=== PATIENT | male | born 1985 | race African-American/Black ===

== ENCOUNTER 2016-10-03 15:07 | Emergency (ER) | payer BC ==
[~2016-10-03] VITALS: Ht 185.4 cm; Wt 116.9 kg
[2016-10-03 16:21] LABS: EOSINOPHIL (%) 2.9 % (0-5); EOSINOPHIL COUNT 0.2 K/uL (0-0.3); HEMATOCRIT 47.3 % (38.0-50.0); IMMATURE GRANULOCYTE (%) 0.4 % (0.0-0.7); INSTRUMENT ABS NEUTROPHIL CT 4.8 K/uL; LYMPHOCYTE COUNT 2.2 K/uL (1.0-2.8); MCH 25.9 PG (29.0-34.0); MCHC 32.3 G/DL (30.0-36.0); MEAN PLAT.VOLUME 9.5 uM^3 (9.0-12.4); MONOCYTE (%) 8.4 % (3-12); MONOCYTE COUNT 0.7 K/uL (0-0.8); NEUTROPHIL (%) 60.4 % (45-76); NEUTROPHIL COUNT 4.8 K/uL (1.8-6.4); PLATELET COUNT 260 K/uL (156-360); RBC DIS.WIDTH-CV 12.8 % (11.8-14.6); RED BLOOD COUNT 5.91 M/uL (4.00-5.50)
[2016-10-03 16:32] LABS: CHLORIDE 105 mEq/L (99-109); POTASSIUM 3.3 mEq/L (3.7-5.4); SODIUM 141 mEq/L (136-147)
[2016-10-03 16:33] LABS: GLUCOSE 95 mg/dL (70-99)
[2016-10-03 16:35] LABS: ANION GAP 9 MEQ/L (2-14)
[2016-10-03 16:37] LABS: GFR ESTIMATE (CALCULATED) > 59 mL/min/
[2016-10-03 16:38] LABS: UREA NITROGEN (BUN) 9 mg/dL (9-23)
[2016-10-03 17:49] VITALS: BP 172/102
== END 2016-10-03 17:51 | disposition home or self-care (01) ==
LOC: EME 15:07
PROVIDERS: Physician Assistant
DX: R55 Syncope and collapse (principal)
CPT/HCPCS: 70450; 80048; 85025; 93005; 99281; 99284